=== PATIENT | male | born 1955 | race Caucasian/White ===

== ENCOUNTER 2024-03-22 08:29 | Day surgery (SDC) | payer MEDICARE, OTHER ==
[2024-03-22] MEDS ORDERED: Midazolam 1 MG/ML 2 ML SDV IV ONE (08:30)
[2024-03-22] MEDS ORDERED: Propofol 200 MG/20 ML SDV IV ONE (08:30)
[2024-03-22] MEDS ORDERED: Lidocaine 2% 5 ML SDV INJECT ONE (08:30)
[2024-03-22] MEDS ORDERED: Sodium Chloride 0.9% 10 ML Syringe FLUSH PRN (08:30)
[2024-03-22] MEDS: Lactated Ringers 1,000 ML IV SCH (10:00)
[2024-03-22] MEDS: Simethicone Drops 40 MG/0.6 ML 30 ML Bottle ONE (10:07)
== END 2024-03-22 12:00 | disposition home or self-care (01) ==
LOC: FB.SDS 08:29
PROVIDERS: ATTEND Surgery
DX: Z12.11 Encounter for screening for malignant neoplasm of colon (principal); D12.6 Benign neoplasm of colon, unspecified; K57.30 Diverticulosis of large intestine without perforation or abscess without bleeding; Z86.0101 Personal history of adenomatous and serrated colon polyps; K21.9 Gastro-esophageal reflux disease without esophagitis; Z79.899 Other long term (current) drug therapy
CPT/HCPCS: 00811; 88305; A9270-GY; J2250; J2704; J7120